=== PATIENT | female | born 1995 | race Caucasian/White ===

== ENCOUNTER 2018-04-22 06:25 | Day surgery (SDC) | payer OTHER ==
[~2018-04-22 06:25] MED LIST: CEFAZOLIN 2 GM/50 ML (PMX) 50 ML IVPB
[2018-04-22] MEDS ORDERED: MIDAZOLAM 1 MG/ML 2 ML INJ (07:44)
[2018-04-22] MEDS: POLYMYXIN/BACITRACIN 1L IRRIG (08:17)
[2018-04-22] MEDS ORDERED: ONDANSETRON 4 MG INJ (09:02)
[2018-04-22] MEDS ORDERED: PROPOFOL 20 ML (09:02)
[2018-04-22] MEDS ORDERED: CEFAZOLIN 1 GM INJ (09:02)
[2018-04-22] MEDS ORDERED: LIDOCAINE 2% (SDV) 5 ML INJ (09:02)
[2018-04-22] MEDS ORDERED: MEPERIDINE 100 MG INJ (09:28)
[2018-04-22] MEDS: BUPIVACAINE 0.5% (SDV) 30 ML INJ (09:39)
[2018-04-22] MEDS ORDERED: MEPERIDINE 25 MG INJ IV (10:00)
[2018-04-22] MEDS ORDERED: DIPHENHYDRAMINE 50 MG INJ IV (10:00)
[2018-04-22] MEDS ORDERED: FENTAnyl 50 MCG/ML VIAL IV (10:00)
[2018-04-22] MEDS ORDERED: HYDROmorphONE 1 MG/5 ML IV SYRINGE IV ×2 (10:00→10:15)
[2018-04-22] MEDS: HYDROmorphONE 1 MG/5 ML IV SYRINGE IV (10:26)
[2018-04-22] MEDS: ONDANSETRON 4 MG INJ IV (11:31)
== END 2018-04-22 11:30 | disposition home or self-care (01) ==
LOC: SDS 06:25
DX: S92.202 Fracture of unspecified tarsal bone(s) of left foot (principal); X58.XXXD Exposure to other specified factors, subsequent encounter
CPT/HCPCS: 28320; 73630-LT; 88304; 88311

== ENCOUNTER 2018-06-25 09:41 | Emergency (ER) | payer OTHER ==
[2018-06-25 11:01] LABS: URINE PH (Dip) POC 6.5 (5.0-8.5)
[2018-06-25 11:01] LABS: URINE BLOOD (Dip) POC Negative (NEGATIVE); URINE GLUCOSE (Dip) POC Negative (NEGATIVE); URINE KETONES (Dip) POC Negative (NEGATIVE); URINE LEUKOCYTE EST (Dip) POC Negative (NEGATIVE); URINE NITRITE (Dip) POC Negative (NEGATIVE); URINE TOTAL PROTEIN POC Negative (NEGATIVE)
== END 2018-06-25 12:48 | disposition home or self-care (01) ==
LOC: FTE 09:41
DX: N89.8 Other specified noninflammatory disorders of vagina (principal)
CPT/HCPCS: 81003; 81025; 87210; 99284

== ENCOUNTER 2018-07-08 23:17 | Emergency (ER) | payer SELFPAY, OTHER | END 2018-07-09 03:00 | disposition left against medical advice (07) | LOC: FTE 23:17 | DX: Z53.21 Procedure and treatment not carried out due to patient leaving prior to being seen by health care provider (principal) ==